=== PATIENT | female | born 1965 | race Caucasian/White ===

== ENCOUNTER 2023-09-18 17:47 | Emergency (ER) | payer OTHER ==
[2023-09-18 19:09] LABS: Specific Gravity 1.012 (1.005-1.030); Sqamous Epithelial <5 /HPF (None Seen); Urine Bacteria None Seen /HPF (<20); Urine Bilirubin NEGATIVE (Negative); Urine Blood Negative (Negative); Urine Clarity Clear (Clear); Urine Color Colorless (Yellow); Urine Crystals Unidentified Few /HPF (None Seen); Urine Culture Reflex Order NOT NEEDED; Urine Glucose NEGATIVE (Negative); Urine Ketones NEGATIVE (Negative); Urine Microscopic Reflex YN ORDER UMIC; Urine Nitrite NEGATIVE (Negative); Urine Protein NEGATIVE (Negative); Urine RBC <5 /HPF (None Seen); Urine Urobilinogen Normal (Normal); Urine WBC <5 /HPF (<5); Urine pH 6.5 (5.0-7.0)
--- NOTE | 2023-09-18 19:31 | RAD REPORT ---
EXAM DESCRIPTION: RAD - Chest Single View - 09/18/2023 7:23 pm CLINICAL HISTORY: left side chest pain/swelling Chest pain. COMPARISON: No comparisons FINDINGS: Portable technique limits examination quality. The lungs are grossly clear. The heart is upper limit of normal in size. No displaced fractures.Cervi gabriel hardware plate. Evidence of previous right axillary node dissection. Left-sided remain impression drain is noted along the chest wall. IMPRESSION: No acute intrathoracic process suspected.
[2023-09-18 20:44] LABS: Absolute Eosinophils 0.2 K/uL (0-0.5); Absolute Lymphocytes (CBC) 2.8 K/uL (0.7-4.9); Absolute Monocytes 0.8 K/uL (0.1-1.3); Absolute Neutrophil 4.7 K/uL (1.8-8.0); Basophils % 0.4 % (0-1.3); Eosinophils % 1.8 % (0-4.4); Hematocrit 41.6 % (36.0-45.0); Hemoglobin 13.8 g/dL (12.0-15.0); Lymphocytes % 32.9 % (15.3-44.8); MCH 29.6 pg (27.0-35.0); MCHC 33.1 g/dL (32.0-36.0); MCV 89.5 fL (80-100); Monocytes % 9.2 % (3.3-12.3); Neutrophils % 55.7 % (41.7-73.7); Nucleated Red Blood Cells % 0.1 % (0-0); Platelets 317 thou/uL (152-406); RBC Red Blood Cell Count 4.65 M/uL (3.86-4.86); Red Cell Distribution Width 14.2 % (12.1-15.2)
[2023-09-18] MEDS ORDERED: ONDANSETRON 4 MG/2 ML VIAL ONE (20:49)
[2023-09-18] MEDS ORDERED: FENTANYL CITR 100 MCG/2 ML ONE (20:50)
[2023-09-18 21:03] LABS: Albumin 3.4 g/dL (3.4-5.0); Albumin/Globulin Ratio 0.9 (1.1-1.8); Anion Gap 8.9 mEq/L (5.0-15.0); Bilirubin Total 0.3 mg/dL (0.2-1.0); Globulin 3.8 g/dL (2.3-3.5); Potassium 3.9 mEq/L (3.5-5.1); Protein, Total 7.2 g/dL (6.4-8.2)
[2023-09-18 21:12] LABS: PT Prothrombin Time 11.2 SECONDS (9.4-12.5); PTT, Activated Partial Thromb 32.6 SECONDS (24.3-36.9)
[2023-09-18] MEDS ORDERED: cloNIDine HCL 0.1 MG TAB ONE (21:39)
[2023-09-18] MEDS ORDERED: AMLODIPINE 5 MG TAB ONE (21:39)
--- NOTE | 2023-09-18 22:11 | RAD REPORT ---
EXAM DESCRIPTION: CT - Chest Abdomen Pelvis W Cont - 09/18/2023 10:02 pm CLINICAL HISTORY: Chest and abdomen pain. PAIN COMPARISON: No comparisons TECHNIQUE: Approximately 100 mL nonionic IV contrast was administered to the patient. All CT scans are performed using dose optimization technique as appropriate and may include automated exposure control or mA/KV adjustment according to patient size. FINDINGS: The lungs are clear.No pleural or pericardial effusion.No intrathoracic adenopathy. Skin thickening and subcutaneous fat stranding is present in the left chest wall. There is a drain in place. This likely represents infection. There is no evidence of abscess seen. The liver, spleen, pancreas, adrenal glands are within normal limits. Small calculi are present in sascha th kidneys without hydronephrosis. No bowel obstruction, free air, free fluid or abscess. Normal appendix. Mild sigmoid diverticulosis c aleksandr without diverticulitis. No pathologic lymphadenopathy in the abdomen or pelvis. Mild lumbosacral degenerative changes. IMPRESSION: Left chest wall cellulitis/infection pattern.No abscess is seen. Small calculi are present in both kidneys without hydronephrosis. Sigmoid diverticulosis coli without diverticulitis.
--- NOTE | 2023-09-18 22:59 | EDPHYS ---
Physician Documentation [facility] Name: Viviana Grajeda Age: 58 yrs Sex: Female : 1965 Arrival Date: 09/18/2023 Time: 17:47 Bed 8 Private MD: ED Physician Lourdes Masrhall HPI: 09/17 18:50 This 58 yrs old Female presents to ER via Ambulatory with complaints of Infected cp surgical site. 18:50 Patient is a 58-year-old female who presents to the emergency department with concern cp for infected surgical site to her left chest wall. Patient reports she underwent left-sided mastectomy on September 08 and that today she started noticing increased pain, redness and swelling. Patient denies fever, denies shortness of breath, denies vomiting and/or diarrhea. Historical: - Allergies: 18:16 No Known Allergies; nj1 - PMHx: 18:16 Breast cancer; Hypertensive disorder; Hypercholesterolemia; Gastric reflux; nj1 Polymyalgia; Chronic obstructive lung disease; - PSHx: 18:16 Mastectomy; right (2014), left (09/09/2023); Operative procedure on knee; Cervical nj1 fusion; - Immunization history:: Client reports receiving the 1st dose of the Covid vaccine. - Infectious Disease History:: Denies. - Social history:: Smoking status: Patient denies any tobacco usage or history of. ROS: 18:55 Constitutional: HX per HPI cp 18:55 Constitutional: Negative for body aches, chills, fever, cp 18:55 Cardiovascular: Negative for edema, palpitations, 18:55 Respiratory: Negative for cough, shortness of breath, wheezing, 18:55 Abdomen/GI: Negative for abdominal pain, vomiting, diarrhea, constipation, 18:55 Neuro: Negative for altered mental status, headache, syncope, weakness, 18:55 All other systems are negative, Exam: 19:00 Constitutional: The patient appears in no acute distress, alert, awake, cp non-diaphoretic, non-toxic, well developed, well nourished, 19:00 Head/Face: Normocephalic, atraumatic. cp 19:00 Eyes: Periorbital structures: appear normal, Conjunctiva: normal, no exudate, no injection, Sclera: no appreciated abnormality, Lids and lashes: appear normal, bilaterally, 19:00 ENT: External ear(s): are unremarkable, Nose: is normal, Mouth: Lips: moist, Oral mucosa: pink and intact, moist, Posterior pharynx: is normal, airway is patent, no erythema, no exudate, 19:00 Neck: ROM/movement: is normal, is supple, without pain, no range of motions limitations, 19:00 Chest/axilla: Inspection: Transverse surgical scar across left side of chest appears to be healing well, no drainage from scar, minimal erythema, mild swelling of the left side of the chest noted and moderate tenderness to palpation noted, 19:00 Cardiovascular: Rate: normal, Rhythm: regular, Edema: is not appreciated, JVD: is not appreciated, 19:00 Respiratory: the patient does not display signs of respiratory distress, Respirations: normal, no use of accessory muscles, no retractions, labored breathing, is not present, Breath sounds: are clear throughout, no decreased breath sounds, no stridor, no wheezing, 19:00 Abdomen/GI: Inspection: abdomen appears normal, Bowel sounds: active, all quadrants, Palpation: abdomen is soft and non-tender, in all quadrants, 19:00 Back: pain, is absent, 19:00 Neuro: Orientation: to person, place \T\ time. Mentation: is normal, Cerebellar function: is grossly normal, Motor: moves all fours, strength is normal, Sensation: is normal, 20:04 ECG was reviewed by the Attending Physician. cp Vital Signs: 18:11 BP 140 / 76; Pulse 72; Resp 18; Temp 98(O); Pulse Ox 100% ; Weight 90.72 kg; Height 5 nj1 ft. 8 in. ; Pain 6/10; 19:43 BP 165 / 90; Pulse 72; Pulse Ox 100% on R/A; tm6 20:58 BP 161 / 91; Pulse 74; Pulse Ox 100% on R/A; Pain 8/10; tm6 21:52 BP 152 / 80; Pulse 68; Pulse Ox 99% on R/A; tm6 23:08 BP 154 / 80; Pulse 66; Resp 17; Temp 98.1(TE); Pulse Ox 97% on R/A; Pain 6/10; tm6 18:11 Body Mass Index 30.41 (90.72 kg, 172.72 cm) nj 18:11 Pain Scale: Adult nj1 20:58 Pain Scale: Adult tm6 23:08 Pain Scale: Adult tm6 MDM: 18:19 Patient medically screened. 20:00 Differential diagnosis: cellulitis, abscess, sepsis, pneumonia. 22:58 Data reviewed: vital signs, nurses notes, lab test result(s), EKG, radiologic studies, cp CT scan, plain films, and as a result, I will discharge patient. 22:58 I considered the following discharge prescriptions or medication management in the emergency department Medications were administered in the Emergency Department. See MAR. 22:58 Counseling: I had a detailed discussion with the patient and/or guardian regarding the historical points, exam findings, and any diagnostic results supporting the discharge/admit diagnosis, lab results, radiology results, the need for outpatient follow up, primary surgeon, to return to the emergency department if symptoms worsen or persist or if there are any questions or concerns that arise at home. ED course: VSS. Labs, ekg, radiology studies reviewed and discussed. Will discharge to f/u with primary surgeon. 09/17 18:44 Order name: Blood Culture Adult (2) 09/17 18:44 Order name: CBC with Diff; Complete Time: 21:29 09/17 21:29 Interpretation: Normal except: MPV 7.0. 09/17 18:44 Order name: CMP; Complete Time: 21:29 09/17 21:29 Interpretation: Normal except: CL 109; BUN 21; CRE 0.54; AST 13; GLOB 3.8; A/G 0.9. 09/17 18:44 Order name: Lactate w/ 2H reflex if indic.; Complete Time: 21:29 09/17 18:44 Order name: Protime (+inr); Complete Time: 21:29 09/17 18:44 Order name: Ptt, Activated; Complete Time: 21:29 09/17 18:44 Order name: Urinalysis w/ reflexes; Complete Time: 20:18 09/17 20:40 Order name: Glucose, Ancillary Testing; Complete Time: 21:29 EDMS 09/17 18:44 Order name: Chest Single View XRAY; Complete Time: 20:18 20 20:19 Order name: CT Chest, Abdomen, Pelvis - W/Contrast; Complete Time: 22:31 09/17 18:44 Order name: Accucheck; Complete Time: 20:34 cp 09/17 18:44 Order name: Cardiac monitoring; Complete Time: 18:47 cp 09/17 18:44 Order name: EKG - Nurse/Tech; Complete Time: 20:01 cp 09/17 18:44 Order name: IV Saline Lock - Large Bore; Complete Time: 20:34 cp 09/17 18:44 Order name: Labs collected and sent; Complete Time: 20:34 cp 09/17 18:44 Order name: O2 Per Protocol; Complete Time: 18:47 cp 09/17 18:44 Order name: O2 Sat Monitoring; Complete Time: 18:47 cp 09/17 18:44 Order name: Vital Signs; Complete Time: 18:47 cp EC:04 Rate is 67 beats/min. Rhythm is regular. DC interval is normal. QRS interval is normal. cp QT interval is normal. T waves are Inverted in lead aVR. Interpreted by me. Reviewed by me. Administered Medications: 20:58 Drug: fentaNYL (PF) IVP 25 mcg IVP once Route: IVP; Site: right hand; tm6 21:49 Follow up: Response: No adverse reaction; Marked relief of symptoms jb4 20:58 Drug: Ondansetron IVP 4 mg IVP once; over 2 minutes Route: IVP; Site: right hand; tm6 21:49 Follow up: Response: No adverse reaction; Marked relief of symptoms jb4 21:48 Drug: cloNIDine PO 0.1 mg PO once Route: PO; jb4 21:48 Follow up: Response: No adverse reaction; Marked relief of symptoms jb4 21:48 Drug: amLODIPine PO 2.5 mg PO once Route: PO; jb4 23:07 Drug: Clindamycin IVPB 900 mg IVPB once over 30 mins; (mix in 50 mL) Route: IVPB; tm6 Infused Over: 30 mins; Site: right antecubital; 23:07 Drug: Ketorolac IVP 15 mg IVP once Route: IVP; Site: right antecubital; tm6 Disposition Summary: 09/18/23 22:58 Discharge Ordered Notes: Location: Home cp Problem: new cp Symptoms: have improved cp Condition: Stable cp Diagnosis - Cellulitis of chest wall cp Followup: cp - With: Private Physician - When: 2 - 3 days - Reason: Wound Recheck Discharge Instructions: - Discharge Summary Sheet cp - Cellulitis, Adult cp Forms: - Medication Reconciliation Form cp - Antibiotic Education cp - Prescription Opioid Use cp - Patient Portal Instructions cp - Leadership Thank You Letter cp Prescriptions: - Clindamycin HCl 300 mg Oral Capsule - take 1 capsule ORAL route every 6 hours for 10 days; 40 capsule; Refills: 0, cp Product Selection Permitted Signatures: Dispatcher [employer] EDMS Timothy Calle PA PA cp Bryson, James, RN RN jb4 Tiffany Kim RN RN ko1 Lisa Baptiste, RN RN nj1 Renny Louie, RN RN tm6 Corrections: (The following items were deleted from the chart) 18:45 18:45 BLOOD CULTURE*+BA.LAB.BRZ ordered. EDMS EDMS 18:45 18:45 CBC+H.LAB.BRZ ordered. EDMS EDMS 18:45 18:45 COMPREHENSIVE METABOLIC PANEL+C.LAB.BRZ ordered. EDMS EDMS 18:45 18:45 LACTATE+C.LAB.BRZ ordered. EDMS EDMS 18:45 18:45 PROTIME (+INR)+COAG.LAB.BRZ ordered. EDMS EDMS 18:45 18:45 PTT, ACTIVATED+COAG.LAB.BRZ ordered. EDMS EDMS 18:45 18:45 Urinalysis+U.LAB.BRZ ordered. EDMS EDMS 18:45 18:45 Chest Single View+RAD.RAD.BRZ ordered. EDMS EDMS
--- NOTE | 2023-09-18 22:59 | ER ---
Nurse's Notes [facility] Name: Viviana Grajeda Age: 58 yrs Sex: Female : 1965 Arrival Date: 09/18/2023 Time: 17:47 Bed 8 Private MD: Diagnosis: Cellulitis of chest wall Presentation: 09/17 18:11 Chief complaint: Patient states: Had left side mastectomy on September 08, concerned about nj1 surgical site, it is swollen, warm to touch, discolored and very painful. Coronavirus screen: Vaccine status: Patient reports receiving the 1st dose of the Covid vaccine. Ebola Screen: Patient denies travel to an Ebola-affected area in the 21 days before illness onset. Initial Sepsis Screen: Does the patient meet any 2 criteria? No. Patient's initial sepsis screen is negative. Does the patient have a suspected source of infection? No. Patient's initial sepsis screen is negative. Risk Assessment: Do you want to hurt yourself or someone else? Patient reports no desire to harm self or others. Onset of symptoms was September 17, 2023. 18:11 Method Of Arrival: Ambulatory [facility] 18:11 Acuity: TEJAS 3 nj1 Historical: - Allergies: 18:16 No Known Allergies; nj1 - PMHx: 18:16 Breast cancer; Hypertensive disorder; Hypercholesterolemia; Gastric reflux; nj1 Polymyalgia; Chronic obstructive lung disease; - PSHx: 18:16 Mastectomy; right (2014), left (09/09/2023); Operative procedure on knee; Cervical nj1 fusion; - Immunization history:: Client reports receiving the 1st dose of the Covid vaccine. - Infectious Disease History:: Denies. - Social history:: Smoking status: Patient denies any tobacco usage or history of. Screenin:43 [facility] ED Fall Risk Assessment (Adult) History of falling in the last 3 months, ko1 including since admission No falls in past 3 months (0 pts) Confusion or Disorientation No (0 pts) Intoxicated or Sedated No (0 pts) Impaired Gait No (0 pts) Mobility Assist Device Used No (0 pt) Altered Elimination No (0 pt) Score/Fall Risk Level 0 - 2 = Low Risk Oriented to surroundings, Maintained a safe environment, Educated pt \\T\\ family on fall prevention, incl call for assistance when getting out of bed, Assessed \\T\\ reinforced patient's understanding of fall precautions, Provided non-skid footwear, Hourly rounding (assess needs \\T\\ fall precautionary measures) done, Used ambulatory aids as needed (educated on \\T\\ assisted with), Used gait belt as appropriate. Abuse screen: Denies threats or abuse. Denies injuries from another. Nutritional screening: No deficits noted. Tuberculosis screening: No symptoms or risk factors identified. Assessment: 18:43 General: Appears in no apparent distress. uncomfortable, Behavior is cooperative, ko1 appropriate for age. Pain: Complains of pain in anterior aspect of left upper chest, left lateral anterior chest and left breast. Neuro: No deficits noted. Cardiovascular: No deficits noted. Respiratory: No deficits noted. GI: No deficits noted. : No deficits noted. EENT: No deficits noted. Derm: incision healing to left breast area with bill drain. Musculoskeletal: Swelling present in anterior aspect of left upper chest and left lateral anterior chest. 19:43 Reassessment: Patient appears in no apparent distress at this time. Patient is alert, tm6 oriented x 3, equal unlabored respirations, skin warm/dry/pink. 19:50 Reassessment: Pt reports RITA mastectomy, right mastectomy was over 9 years ago and the jb4 left was 10 days ago. Asked JEREMY Calle if the right arm could be used or if an alternative would be needed for peripheral access, providers states "I don't know. 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 Will consult ER physician. 20:00 Reassessment: Per Dr. Marshall, ok to place IV on right arm. tm6 20:58 Reassessment: Patient appears in no apparent distress at this time. Patient and/or tm6 family updated on plan of care and expected duration. Pain level reassessed. Patient is alert, oriented x 3, equal unlabored respirations, skin warm/dry/pink. 21:52 Reassessment: No changes from previously documented assessment. tm6 23:07 Reassessment: discharge pending completion of IV antibiotics. tm6 Vital Signs: 18:11 BP 140 / 76; Pulse 72; Resp 18; Temp 98(O); Pulse Ox 100% ; Weight 90.72 kg; Height 5 nj1 ft. 8 in. ; Pain 6/10; 19:43 BP 165 / 90; Pulse 72; Pulse Ox 100% on R/A; tm6 20:58 BP 161 / 91; Pulse 74; Pulse Ox 100% on R/A; Pain 8/10; tm6 21:52 BP 152 / 80; Pulse 68; Pulse Ox 99% on R/A; tm6 23:08 BP 154 / 80; Pulse 66; Resp 17; Temp 98.1(TE); Pulse Ox 97% on R/A; Pain 6/10; tm6 18:11 Body Mass Index 30.41 (90.72 kg, 172.72 cm) nj1 18:11 Pain Scale: Adult nj1 20:58 Pain Scale: Adult tm6 23:08 Pain Scale: Adult tm6 ED Course: 17:49 Patient arrived in ED. mr 17:58 Timothy Calle PA is PHCP. cp 17:58 Lourdes Marshall MD is Attending Physician. cp 18:16 Triage completed. nj1 18:18 Arm band placed on right wrist. nj1 18:24 Tiffany Kim, RN is Primary Nurse. ko1 18:43 Patient has correct armband on for positive identification. Placed in gown. Bed in low ko1 position. Call light in reach. Side rails up X 1. Provided Education on: labs, tests. Pulse ox on. NIBP on. Door closed. Noise minimized. Lights dimmed. Warm blanket given. Pillow given. Assisted to bathroom. 18:47 Urinalysis w/ reflexes Sent. ko1 19:24 Chest Single View XRAY In Process Unspecified. EDMS 20:01 EKG done, by ED staff, reviewed by Timothy LUNA. tm6 20:23 Initial lab(s) drawn, by dc, sent to lab. Inserted saline lock: 22 gauge in right hand, jb4 using aseptic technique. Blood collected. 20:34 Ptt, Activated Sent. jb4 20:34 Protime (+inr) Sent. jb4 20:34 Lactate w/ 2H reflex if indic. Sent. jb4 20:34 CMP Sent. jb4 20:34 CBC with Diff Sent. jb4 20:34 Blood Culture Adult (2) Sent. jb4 22:04 CT Chest, Abdomen, Pelvis - W/Contrast In Process Unspecified. EDMS 23:27 No provider procedures requiring assistance completed. IV discontinued, intact, tm6 bleeding controlled, No redness/swelling at site. Pressure dressing applied, x2. Administered Medications: 20:58 Drug: fentaNYL (PF) IVP 25 mcg IVP once Route: IVP; Site: right hand; tm6 21:49 Follow up: Response: No adverse reaction; Marked relief of symptoms jb4 20:58 Drug: Ondansetron IVP 4 mg IVP once; over 2 minutes Route: IVP; Site: right hand; tm6 21:49 Follow up: Response: No adverse reaction; Marked relief of symptoms jb4 21:48 Drug: cloNIDine PO 0.1 mg PO once Route: PO; jb4 21:48 Follow up: Response: No adverse reaction; Marked relief of symptoms jb4 21:48 Drug: amLODIPine PO 2.5 mg PO once Route: PO; jb4 23:07 Drug: Clindamycin IVPB 900 mg IVPB once over 30 mins; (mix in 50 mL) Route: IVPB; tm6 Infused Over: 30 mins; Site: right antecubital; 23:07 Drug: Ketorolac IVP 15 mg IVP once Route: IVP; Site: right antecubital; tm6 Medication: 18:43 VIS not applicable for this client. ko1 Outcome: 22:58 Discharge ordered by . savannah 23:27 Discharged to home ambulatory, tm6 23:27 Condition: stable 23:27 Discharge instructions given to patient, Instructed on discharge instructions, follow up and referral plans. medication usage, Demonstrated understanding of instructions, follow-up care, medications, Prescriptions given X 1, 23:28 Patient left the ED. tm6 Signatures: Dispatcher [employer] EDMS Viviana Laboy, Reg Reg mr Timothy Calle, JEREMY PA Hunter Chandler RN RN jb4 Tiffany Kim RN RN ko1 Lisa Baptiste RN RN nj1 Renny Louie RN RN tm6 Corrections: (The following items were deleted from the chart) 23:27 23:08 BP 154 / 80; Pulse 66bpm; Pulse Ox 97% RA; Pain 610, Adult; tm6 tm6
[2023-09-18] MEDS ORDERED: CLINDAMYCIN 900MG/D5W 900 MG/50 ML IVPB IV ONE (23:01)
[2023-09-18] MEDS ORDERED: KETOROLAC 30 MG/ML INJ ONE (23:01)
[2023-09-19 00:50] VITALS: BP 154/80; TEMP 98.1; O2SAT 97
--- NOTE | 2023-09-22 13:11 | EKG ---
Test Date: 2023-09-18 Test Time: 19:58:19 Meat Department Manager: WANDER MEASUREMENT RESULTS: Intervals: Rate: 67 KS: 174 QRSD: 82 QT: 408 QTc: 431 [place]: P: 57 KS: 174 QRS: 23 T: 31 INTERPRETIVE STATEMENTS: Normal sinus rhythm Normal ECG No previous ECG available for comparison Electronically Signed On 09-22-23 13:04:18 CDT by Mehul Clayton
== END 2023-09-18 23:28 | disposition home or self-care (01) ==
LOC: ER 17:47
DX: L03.313 Cellulitis of chest wall (principal); Z90.12 Acquired absence of left breast and nipple; Z85.3 Personal history of malignant neoplasm of breast
CPT/HCPCS: 87040 ×2; 85025; 81001; 36415; 85610; 82947; 83605; 85730; 80053; 71260; 74177; 71045; 99285; Q9967; J3010; J2405; 93005